=== PATIENT | female | born 1990 | race Caucasian/White ===

== ENCOUNTER 2020-07-07 16:58 | Emergency (ER) | payer OTHER ==
[~2020-07-07] VITALS: Ht 170.2 cm; Wt 108.9 kg
[2020-07-07 18:11] LABS: ABSOLUTE NEUTROPHILS 11.5 thou/uL (1.4-8.2); BASOPHILS 0.6 % (0.0-2.0); EOSINOPHILS 0.8 % (0.0-3.0); LYMPHOCYTES 14.6 % (24.0-44.0); MCH 29.5 pg (26.0-34.0); MCHC 34.1 g/dL (28.0-37.0); MCV 86.6 fL (80.0-100.0); MONOCYTES 7.1 % (1.0-8.0); POLYS 76.9 % (36.0-66.0); RBC 4.74 mil/uL (4.20-5.00); RDW 13.1 % (10.5-14.5); WBC 15.7 thou/uL (4.0-11.0)
[2020-07-07 18:30] LABS: ANION GAP 11 mmol/L (7-16); BUN 7 mg/dL (7-18); CHLORIDE 103 mmol/L (98-107); CO2 24 mmol/L (21-32); CREATININE 1.1 mg/dL (0.6-1.0); GLUCOSE 120 mg/dL (74-106); SODIUM 138 mmol/L (136-145)
[2020-07-07 18:31] LABS: POTASSIUM 4.1 mmol/L (3.5-5.1)
[2020-07-07 18:39] LABS: ALBUMIN 3.8 g/dL (3.4-5.0); SGOT 56 U/L (15-37); SGPT 63 U/L (14-59); TOTAL BILIRUBIN 0.5 mg/dL (0.2-1.0); TOTAL PROTEIN 7.6 g/dL (6.4-8.2); TROPONIN-I <0.06 ng/mL (<0.06)
[2020-07-07 18:41] LABS: PLATELET COUNT 214 thou/uL (150-400)
[2020-07-07 18:45] LABS: URINE BILIRUBIN NEGATIVE (Negative); URINE BLOOD NEGATIVE (Negative); URINE CLARITY CLEAR; URINE COLOR YELLOW; URINE GLUCOSE-RANDOM* NEGATIVE (Negative); URINE KETONES NEGATIVE (Negative); URINE LEUKOCYTES-REFLEX NEGATIVE (Negative); URINE NITRITE-REFLEX NEGATIVE (Negative); URINE PROTEIN (DIPSTICK) NEGATIVE (Negative)
[2020-07-07 18:49] LABS: SSA (PROTEIN CONFIRMATORY) NEGATIVE (Negative)
[2020-07-07] MEDS ORDERED: ZOFRAN ODT4 MG PO (19:54)
[2020-07-07] MEDS ORDERED: TORADOL 10 MG T10 MG PO (19:54)
[2020-07-07 20:04] VITALS: BP 136/78
--- NOTE | 2020-07-08 10:33 | EKG ---
[place] [address] [facility] [place] [address] ELECTROCARDIOGRAM REPORT Name: BRANDON FRITZMelida Room #: DEP [facility] [id number] Admission: 07/07/20 Attend Phys: Discharge: 07/07/20 Date of : [birth year] Report #: [id number] [facility] ED Test Date: 2020-07-07 Test Time: 17:05:57 Pat Name: BHARTI FRITZ Department: Room: Gender: F T[employer] Down Matcher: bry : 1990 Requested By: Arsalan Weber Order Number: [id number] MD: Jose Alberto Schaffer Measurements Intervals [place] Rate: 122 P: 49 MS: 146 QRS: 65 QRSD: 104 T: 10 QT: 320 QTc: 456 Interpretive Statements Sinus tachycardia Low voltage, extremity leads Baseline wander in lead(s) V2,V3,V4,V5,V6 No previous ECG available for comparison Electronically Signed On 07-08-2020 10:32:58 CDT by Jose Alberto Schaffer [email or web address] <ELECTRONICALLY SIGNED> By: Jose Alberto Schaffer MD, [facility] 07/08/20 1032 1705 04 Jose Alberto Schaffer MD, FACC /EPI
== END 2020-07-07 20:04 | disposition home or self-care (01) ==
LOC: ER 16:58
PROVIDERS: Physician Assistant
DX: R07.89 Other chest pain (principal); G43.909 Migraine, unspecified, not intractable, without status migrainosus